=== PATIENT | female | born 1960 | race Caucasian/White ===

== ENCOUNTER 2019-11-22 11:59 | Emergency (ER) | payer BC, OTHER ==
--- OUTSIDE RECORDS SUMMARY | 2019-11-22 12:07 | XMS REPORT | Continuity of Care Document ---
:1960 External Reference #:[id number] Author Name Nani Bejarano M.D. (transmitted by agent of provider Sparkle Ladd) Address [address] [facility] [facility], [place] [address] Care Team Providers Name Role Phone Nani Bejarano MD - Internal Care Team Information Business Administration Instructor Medicine Peyton Burnett MD - Surgery Care Team Information Business Administration Instructor Fredy Partida MD - Endocrinology, Care Team Information Business Administration Instructor Diabetes & Metabolism Ally Hernández M.D. - Hematology & Care Team Information Business Administration Instructor [phone] Oncology Pura Gray MD - Obstetrics & Care Team Information Business Administration Instructor [phone] Gynecology Phylicia Navas NP - Psych/Mental Care Team Information Business Administration Instructor Health, Adult Problems Active Problems Provider Date Malignant tumor of anal canal Nani Bejarano M.D. Onset: 12/30/2014 History of malignant neoplasm of breast Nani Bejarano M.D. Onset: 2014 Hyperlipidemia Nani Bejarano M.D. Onset: 10/20/2015 Social History Type Date Description Comments Sex Unknown Tobacco Use Start: Unknown End: Former Cigarette Smoker age 15-18 Unknown Smoking Status Reviewed: 11/11/19 Former Cigarette Smoker age 15-18 ETOH Use Drinks Alcoholic Beverages Occasionally Tobacco Use Start: Unknown End: Patient is a former Smoked age 16-18 Unknown smoker Recreational Drug Use Denies Drug Use Exercise Type/Frequency Exercises sporadically walk, exercise bike, 2 days per week. Allergies, Adverse Reactions, Alerts Active Allergies Reaction Severity Comments Date Penicillin 11/15/2014 Doxycycline nausea and vomiting 11/15/2014 Sulfa Antibiotics Nausea and Vomiting Moderate 11/23/2016 Atorvastatin increased LFTs 11/26/2017 Azithromycin Fever and sweats 03/20/2019 Medications Active Medications SIG Qnty Indications Ordering Provider Date Omeprazole 1 by mouth every 90caps R10.9 Nani Bejarano, 08/05/[address] Capsules DR Trazodone HCL 2 by mouth every 30tabs Unknown 100mg night at bedtime Tablets Vitamin D 1 tablets by 60tabs Unknown 2000Unit mouth once a day Tablets Benadryl 1 by mouth at at 30caps Unknown 25mg Capsules bedtime Vitamin B-12 every day Unknown Natural 500mcg Tablets Melatonin Extra 2 po QHS Unknown Strength 5mg/15ML Liquid Vitamin C 1 by mouth every Unknown W/Vitamin E day [id number] Capsules Multi Vitamin 1 by mouth every Unknown Tablets day Hyoscyamine Sulfate as Needed Foor-Pessin, Rocky Medel 0.125mg Tablets Sub Escitalopram Oxalate 1 by mouth every Phylicia Navas, day NEMATOLOGY TEACHER 20mg Tablets Medications Administered in Office Medication SIG Qnty Indications Ordering Provider Date Records Fee Alex Mar M.D. 10/07/2019 Injection PPD Unknown 04/01/2012 Injection PPD Unknown 05/12/1998 Injection Immunizations CPT Code Status Date Vaccine Lot # [id number] Given 09/17/2019 Influenza Virus Vaccine, Quadrivalent, Split, Preservative Free Vital Signs Date Vital Result Comment 11/11/2019 3:46pm Height 65.5 inches 5'5.50" Weight 138.00 lb Heart Rate 72 /min BP Systolic 121 mmHg BP Diastolic 68 mmHg O2 % BldC Oximetry 98 % BMI (Body Mass Index) 22.6 kg/m2 08/05/2019 2:02pm Height 65.5 inches 5'5.50" Weight 140.00 lb Heart Rate 73 /min BP Systolic 103 mmHg BP Diastolic 63 mmHg Body Temperature 97.1 F O2 % BldC Oximetry 97 % BMI (Body Mass Index) 22.9 kg/m2 Results Test Acquired Date Facility Test Result H/L Range Note Laboratory test 09/30/2019 [facility] Blood Urea 12 mg/dL Normal 6-[address] [place] [address] [phone] Creatinine 09/30/2019 [facility] Creatinine 0.86 mg/dL Normal 0.51-0.[address] [place] [address] [phone] Egfr Non- 67.3 >60 Egfr 81.4 >60 1 Cytology 08/29/2019 [facility] Cytology SEE RESULT BELOW 2 , [address] [place] [address] [phone] PDFReport [id number] <SEE NOTE> Laboratory test 08/13/2019 [facility] Surgical SEE RESULT [address] [place] [address] [phone] CBC Auto Diff 05/30/2019 [facility] White Blood 3.7 10^3/uL Normal 3.5-[address] Count 0.8 [place] [address] [phone] Red Blood Count 4.08 10^6/uL Normal 3.70-4.87 Hemoglobin 12.0 g/dL Normal 12.0-16.0 Hematocrit 37 % Normal 35-47 Mean Corpuscular Volume 90 fL Normal 80-97 Mean Corpuscular Hemoglobin 29 pg Normal 27-31 Mean Corpuscular HGB Conc 33 g/dL Normal 31-36 Red Cell Distribution Width 14 % Normal 10-15 Platelet Count 202 10^3/uL Normal 150-450 Mean Platelet Volume 7.1 fL Low 7.4-10.4 Abs Neutrophils 2.2 10^3/uL Normal 1.5-7.7 Abs Lymphocytes 1.0 10^3/uL Normal 1.0-4.8 Abs Monocytes 0.4 10^3/uL Normal 0-0.8 Abs Eosinophils 0.0 10^3/uL Normal 0-0.6 Abs Basophils 0.0 10^3/uL Normal 0-0.2 Abs Nucleated RBC 0.0 10^3/uL Granulocyte % 59.7 % Lymphocyte % 26.5 % Monocyte % 12.1 % Eosinophil % 1.2 % Basophil % 0.5 % Nucleated Red Blood Cells % 0.0 Comp Metabolic 05/30/2019 [facility] Sodium 138 mmol/L Normal 135-[address] [place] [address] [phone] Potassium 4.0 mmol/L Normal 3.5-5.0 Chloride 104 mmol/L Normal 101-111 Co2 Carbon Dioxide 28 mmol/L Normal 22-32 Anion Gap 6 mmol/L Normal 2-11 Glucose 86 mg/dL Normal 70-100 Blood Urea Nitrogen 16 mg/dL Normal 6-24 Creatinine 0.80 mg/dL Normal 0.51-0.95 BUN/Creatinine Ratio 20.0 Normal 8-20 Calcium 9.6 mg/dL Normal 8.6-10.3 Total Protein 6.8 g/dL Normal 6.4-8.9 Albumin 4.1 g/dL Normal 3.2-5.2 Globulin 2.7 g/dL Normal 2-4 Albumin/Globulin Ratio 1.5 Normal 1-3 Total Bilirubin 0.40 mg/dL Normal 0.2-1.0 Alkaline Phosphatase 72 U/L Normal 34-104 Alt 24 U/L Normal 7-52 Ast 33 U/L Normal 13-39 Egfr Non- 73.2 >60 Egfr 88.5 >60 5 Laboratory test 05/30/2019 [facility] C Reactive 1.67 mg/L Normal <8.[address] [place] [address] [phone] 1 Because ethnic data is not always readily available, this report includes an eGFR for both -Americans and non- Americans. The National Kidney Disease Education Program (NKDEP) does not endorse the use of the MDRD equation for patients that are not between the ages of 18 and 70, are , have extremes of body size, muscle mass, or nutritional status, or are non- or non-. According to the National Kidney Foundation, irrespective of diagnosis, the stage of the disease is based on the level of kidney function: Stage Description GFR(mL/min/1.73 m(2)) 1 Kidney damage with normal or decreased GFR 90 2 Kidney damage with mild decrease in GFR 60-89 3 Moderate decrease in GFR 30-59 4 Severe decrease in GFR 15-29 5 Kidney failure <15 (or dialysis) 2 [id number] 3 SEE RESULT BELOW Name: KIKA SANDERS : [address]: Pura Gray MD Acct: [id number] Unit: [id number] AGE: 59 Location: [facility] Re08/29/19 SEX: F Status: REG REF SPEC: [id number] JIMMY: 08/29/[address] [facility] [address]: Pura Gray MD REQ: [id number] RECD: 08/29/19 STATUS: LITA TOBAR DR: Nani Bejarano MD _ ORDERED: TP IMAGE ANALYS, SEAL SKINNER PHYS INTERP, HPV/Thin Prep COMMENTS: [id number] FINAL DIAGNOSIS EPITHELIAL CELL ABNORMALITIES Atypical squamous cells, cannot exclude HSIL (ASC-H) HPV RESULTS Date Time Test Result Flag (u) Normal Range 08/29/19 0848 HPV LATRICE POSITIVE An Negative The high-risk HPV types detected by the assay include: 16, 18, 31, 33, 35, 39, 45, 51, 52, 56, 58, 59, 66, and 68. SPECIMEN(S) RECEIVED A. Ectocervical/Endocervical CYTOLOGY ADEQUACY Specimen Adequacy: Satisfactory of evaluation Transformation zone component cannot be definitely identified due to presence of atrophy or other hormonal changes CONTINUED ON NEXT PAGE DEPARTMENT OF PATHOLOGY, [address] [place], [place] [id number] Yinka Hadley M.D. Director [facility] # [id number] CYTOLOGY PATIENT INFORMATION Patient Information: HPV: High risk HPV RNA testing regardless of pap results. Actual Specimen Date: 08/29/19 LMP If Unknown: 07/2008 Date of Last Specimen: 01/15/19 Post Menopausal?: Y Previous Abnormal Pap Smears?:Y If Yes, enter Diagnosis: Low grade squamous intraepithelial lesion. Signed by and Reported on: Yinka Hadley MD 1170 This Pap test was evaluated with the assistance of the FAB BAG Test Imaging System. Due to cytologic findings at the case repairer microscope, comprehensive manual rescreening by a Lead Software Qa Engineer may be required. The Pap Smear is a screening test designed to aid in the detection of premalignant and malignant conditions of the uterine cervix. It is not a diagnostic procedure and should not be used as the sole means of detecting cervical cancer. Both false- positive and false- negative reports do occur. Depending on your risk status, a Pap smear should be obtained and evaluated every 1-3 years. END OF REPORT DEPARTMENT OF PATHOLOGY, [facility] [address] [place], [place] [address] Yinka Hadley M.D. Director [facility] # [id number] 4 SEE RESULT BELOW Name: KIKA SANDERS : [address]: Lizy Reagan MD Acct: [id number] Unit: [id number] AGE: 59 Location: ENDO Re08/13/19 SEX: F Status: DEP REF SPEC: [id number] JIMMY: 08/13/[address]: Lizy Carias MD REQ: [id number] RECD: 08/13/19 STATUS: LITA TOBAR DR: Nani Bejarano MD _ ORDERED: LEVEL 4/7 FINAL DIAGNOSIS 1. Terminal ileum, biopsy: -- Benign small intestinal mucosa with no significant pathologic abnormalities. 2. Colon, right, biopsy: -- Benign colonic mucosa with no significant pathologic abnormalities. -- No evidence of microscopic colitis. 3. Colon, hepatic flexure, biopsy: -- Hyperplastic polyp. 4. Colon, transverse, biopsy: -- Benign colonic mucosa with no significant pathologic abnormalities. -- No evidence of microscopic colitis. 5. Colon, descending, biopsy: -- Benign colonic mucosa with no significant pathologic abnormalities. -- No evidence of microscopic colitis. 6. Colon, sigmoid, biopsy: -- Benign colonic mucosa with no significant pathologic abnormalities. -- No evidence of microscopic colitis. 7. Colon, rectum, biopsy: -- Benign colonic mucosa with no significant pathologic abnormalities. -- No evidence of microscopic colitis. CLINICAL HISTORY Diarrhea CONTINUED ON NEXT PAGE DEPARTMENT OF PATHOLOGY, [address] [place] [address] Yinka Hadley M.D. Director [facility] # [id number] POST-OPERATIVE DIAGNOSIS Colonoscopy: to terminal ileum; hepatic flexure 3 mm jumbo; 0-10 cm mildly erythematous; hypertrophic adenoma polyp; decreased rectal tone GROSS DESCRIPTION 1. The specimen is received in formalin labeled, Biopsy Terminal Ileum, and consists of three santos-pink irregular to polypoid soft tissue fragments ranging from 0.4 x 0.3 x 0.3 cm to 0.7 x 0.5 x 0.2 cm, which are entirely submitted in one cassette. 2. The specimen is received in formalin labeled, Biopsy Right Colon, and consists of a 1.0 x 1.0 x 0.2 cm aggregate of speckled santos-red irregular to polypoid soft tissue fragments, which is entirely submitted in one cassette. 3. The specimen is received in formalin labeled, Biopsy Hepatic Flexure Polyp, and consists of a 0.5 x 0.3 x 0.3 cm parra pink irregular to polypoid soft tissue fragment, which is entirely submitted in one cassette. 4. The specimen is received in formalin labeled, Biopsy Transverse Colon, and consists of two speckled santos-pink irregular to polypoid soft tissue fragments measuring 0.6 x 0.5 x 0.2 cm and 1.2 x 0.2 x 0.2 cm, which are entirely submitted in one cassette. 5. The specimen is received in formalin labeled, Biopsy Descending Colon, and consists of two santos-pink irregular to polypoid soft tissue fragments measuring 0.6 x 0.2 x 0.1 cm and 0.7 x 0.3 x 0.1 cm, which are entirely submitted in one cassette. 6. The specimen is received in formalin labeled, Biopsy Sigmoid Colon, and consists of a 0.9 x 0.7 x 0.2 cm aggregate of speckled santos-red irregular to polypoid soft tissue fragments, which are entirely submitted in one cassette. 7. The specimen is received in formalin labeled, Biopsy Rectum, and consists of a 1.0 x 0.6 x 0.3 cm aggregate of speckled santos-red irregular to polypoid soft tissue fragments, which is entirely submitted in one cassette. Signed by and Reported on: Tatiana Alanis MD 08/14/19 1346 END OF REPORT DEPARTMENT OF PATHOLOGY, [address] [place] [address] Yinka Hadley M.D. Director [facility] # [id number] 5 Because ethnic data is not always readily available, this report includes an eGFR for both -Americans and non- Americans. The National Kidney Disease Education Program (NKDEP) does not endorse the use of the MDRD equation for patients that are not between the ages of 18 and 70, are , have extremes of body size, muscle mass, or nutritional status, or are non- or non-. According to the National Kidney Foundation, irrespective of diagnosis, the stage of the disease is based on the level of kidney function: Stage Description GFR(mL/min/1.73 m(2)) 1 Kidney damage with normal or decreased GFR 90 2 Kidney damage with mild decrease in GFR 60-89 3 Moderate decrease in GFR 30-59 4 Severe decrease in GFR 15-29 5 Kidney failure <15 (or dialysis) Procedures Date Code Description Status 08/13/2019 [id number] Colonoscopy Completed 06/18/2019 [id number] Mammogram Completed 06/17/2018 [id number] Bone Mineral Density Test Completed 07/02/2017 [id number] Mammogram Completed 06/29/2016 [id number] Mammogram Completed 06/28/2015 [id number] Mammogram Completed 07/02/2014 [id number] Mammogram Completed 01/01/2014 [id number] Mammogram Completed 07/23/2012 [id number] Colonoscopy Completed 01/30/2007 [id number] Colonoscopy Completed Medical Devices Description No Information Available Encounters Type Date Location Provider Dx Diagnosis Office Visit 08/05/2019 [facility] Internal Nani Bejarano, F43.20 Adjustment 2:00p Medicine - Ccmob M.D. disorder, unspecified R10.30 Lower abdominal pain, unspecified R15.9 Full incontinence of feces Office Visit 07/08/2019 9:00a [facility] Internal Nani R10.30 Lower abdominal Medicine - Cotton, M.D. pain, unspecified Ccmob M54.9 Dorsalgia, unspecified F33.9 Major depressive disorder, recurrent, unspecified Office Visit 06/10/2019 10:00a [facility] Internal Nani R10.30 Lower abdominal Medicine - Cotton, M.D. pain, unspecified Ccmob F33.9 Major depressive disorder, recurrent, unspecified Office Visit 05/30/2019 12:40p [facility] Internal Nani R10.30 Lower abdominal Medicine - Cotton, M.D. pain, unspecified Ccmob R53.83 Other fatigue Assessments Date Code Description Provider 11/11/2019 N87.9 Dysplasia of cervix uteri, unspecified Nani Cotton, M.D. 11/11/2019 R15.9 Full incontinence of feces Nani Cotton, M.D. 11/11/2019 R10.30 Lower abdominal pain, unspecified Nani Cotton, M.D. 08/05/2019 F43.20 Adjustment disorder, unspecified Nani Cotton, M.D. 08/05/2019 R10.30 Lower abdominal pain, unspecified Nani Cotton, M.D. 08/05/2019 R15.9 Full incontinence of feces Nani Cotton, M.D. 07/08/2019 R10.30 Lower abdominal pain, unspecified Nani Cotton, M.D. 07/08/2019 M54.9 Dorsalgia, unspecified Nani Cotton, M.D. 07/08/2019 F33.9 Major depressive disorder, recurrent, Nani Cotton, M.D. unspecified 06/10/2019 R10.30 Lower abdominal pain, unspecified Nani Cotton, M.D. 06/10/2019 F33.9 Major depressive disorder, recurrent, Nani Cotton, M.D. unspecified 05/30/2019 R10.30 Lower abdominal pain, unspecified Nani Cotton, M.D. 05/30/2019 R53.83 Other fatigue Nani Bejarano M.D. Plan of Treatment Future Appointment(s):12/30/2019 10:40 am - Nani Bejarano M.D. at [facility] - Nani Bejarano M.D. at [facility] - Nani Bejarano M.D.N87.9 Dysplasia of cervix uteri, unspecifiedComments:Plan is for surgeryFollow up:mid DnhdxyozM95.9 Full incontinence of otgtxL79.30 Lower abdominal pain, unspecified Functional Status Description No Information Available Mental Status Description No Information Available Referrals Refer to Reason for Referral Status Appt Date Felice-Lizy Carias M.D. Closed 07/15/2019 [address] [place] [address] [phone]
[2019-11-22 12:47] LABS: ABS Eosinophils 0.1 10^3/ul (0-0.6); ABS Lymphocytes 0.9 10^3/ul (1.0-4.8); ABS Monocytes 0.4 10^3/ul (0-0.8); Eosinophil % 1.5 %; Hematocrit 35 % (35-47); Hemoglobin 11.7 g/dL (12.0-16.0); Lymphocyte % 16.9 %; Mean Corpuscular HGB Conc 34 g/dL (31-36); Mean Corpuscular Hemoglobin 30 pg (27-31); Mean Corpuscular Volume 90 fL (80-97); Mean Platelet Volume 6.5 fL (7.4-10.4); Platelet Count 263 10^3/uL (150-450); Red Blood Count 3.86 10^6 /uL (3.70-4.87); Red Cell Distribution Width 14 % (10-15); White Blood Count 5.4 10^3/uL (3.5-10.8)
--- NOTE | 2019-11-22 12:51 | ED ---
HPI Chest Pain - HPI Summary HPI Summary: Pt is a 59 y/o F presenting to the ED with a chief complaint of chest pain initially onset around 0345 this date. She states she recently had a hysterectomy with biopsies where they found endometrial cancer. She was recovering well until yesterday when she was incredibly fatigued. She woke around 0345 with L shoulder, L side, and L rib pain, and she thought it may have gone away over time but it did not alleviate. It is much worse with deep breaths, and she describes it as a squeezing pain that radiates to her back. Denies hx of heart problems, asthma, COPD, or blood clots. Hx of aggressive HPV , anal and breast CA. - History of Current Complaint Chief Complaint: EDChestWallPain Time Seen by Provider: 11/22/19 12:04 Hx Obtained From: Patient Onset/Duration: Started Hours Ago, Still Present Timing: Constant, Lasting Hours Initial Severity: Severe Current Severity: Moderate Pain Intensity: 7 Pain Scale Used: 0-10 Numeric Chest Pain Location: Mid Sternal Chest Pain Radiates: Yes Chest Pain Radiates To:: Back Character: Pressure/Squeezing Aggravating Factor(s): Deep Breaths Alleviating Factor(s): Nothing Associated Signs and Symptoms: Positive: Chest Pain - Allergy/Home Medications Allergies/Adverse Reactions: Allergies Allergy/AdvReac Type Severity Reaction Status Date / Time Penicillins Allergy Intermediate Hives Verified 11/22/19 12:08 Sulfa (Sulfonamide Allergy Mild GI Upset Verified 11/22/19 12:08 Antibiotics) atorvastatin Allergy elevated Verified 11/22/19 12:08 LFT azithromycin Allergy patient Verified 11/22/19 12:08 doesn't recall doxycycline Allergy flu-like Verified 11/22/19 12:08 symptoms PMH/Surg Hx/FS Hx/Imm Hx Previously Healthy: Yes Endocrine/Hematology History: Denies: Hx Diabetes Cardiovascular History: Reports: Hx Hypercholesterolemia Denies: Hx Congestive Heart Failure, Hx Hypertension, Hx Pacemaker/ICD History: Denies: Hx Renal Disease Musculoskeletal History: Reports: Other Musculoskeletal History - HX BREAST CA RIGHT WITH MASTECTOMY Sensory History: Denies: Hx Hearing Aid Psychiatric History: Denies: Hx Panic Disorder - Cancer History Cancer Type, Location and Year: BREAST AND RECTUM Hx Chemotherapy: Yes - BREAST Hx Radiation Therapy: Yes - BREAST - Surgical History Surgery Procedure, Year, and Place: 1979, TONSILS, NOSE RECONSTRUCTION , LUMPECTOMY, MASTECTOMY AND BREAST RECONSTRUCTION, MALIGNANT TUMOR REMOVAL FROM BOWEL Infectious Disease History: No Infectious Disease History: Denies: Traveled Outside the [place] in Last 30 Days - Family History Known Family History: Negative: Respiratory Disease - Social History Alcohol Use: None Hx Substance Use: No Substance Use Type: Reports: None Hx Tobacco Use: Yes Smoking Status (MU): Former Smoker Review of Systems Positive: Fatigue Positive: Chest Pain All Other Systems Reviewed And Are Negative: Yes Physical Exam - Summary Physical Exam Summary: Constitutional: Well-developed, Well-nourished, Alert. (-) Distressed Skin: Warm, Dry HENT: Normocephalic; Atraumatic Eyes: Conjunctiva normal Neck: Musculoskeletal ROM normal neck. (-) JVD, (-) Stridor, (-) Tracheal deviation Cardio: Rhythm regular, rate normal, Heart sounds normal; Intact distal pulses; The pedal pulses are 2+ and symmetric. Radial pulses are 2+ and symmetric. (-) Murmur Pulmonary/Chest wall: Effort normal. (-) Respiratory distress, (-) Wheezes, (-) Rales Abd: Laparoscopic surgical sites appear well, no erythema or dehiscence. Soft, ( -) tenderness, (-) Distension, (-) Guarding, (-) Rebound Musculoskeletal: (-) Edema Lymph: (-) Cervical adenopathy Neuro: Alert, Oriented x3 Psych: Mood and affect Normal Triage Information Reviewed: Yes Vital Signs On Initial Exam: Initial Vitals Temp Pulse Resp BP Pulse Ox 97.3 F 74 16 118/62 100 11/22/19 12:05 11/22/19 12:05 11/22/19 12:05 11/22/19 12:05 11/22/19 12:05 Vital Signs Reviewed: Yes Procedures - Sedation Patient Received Moderate/Deep Sedation with Procedure: No Diagnostics - Vital Signs Vital Signs Temp Pulse Resp BP Pulse Ox 11/22/19 12:05 97.3 F 74 16 118/62 100 - Laboratory Result Diagrams: 11/22/19 12:33 11/22/19 12:33 Lab Statement: Any lab studies that have been ordered have been reviewed, and results considered in the medical decision making process. - Radiology CXR Radiology Interpretation Completed By: Radiologist Summary of Radiographic Findings: 1. Postsurgical change of RIGHT mastectomy and bilateral breast implants. 2. Bilateral subcutaneous emphysema and free air beneath the hemidiaphragms corresponding with history of hysterectomy last week. 3. Clear lungs and pleural spaces. Negative for pneumothorax. 4. The heart, pulmonary vasculature, and mediastinal contours are unremarkable. 5. Gallbladder fossa level surgical clips. No rib fracture evident. ED physician has reviewed this report. - EKG 1203 Cardiac Rate: NL - 75bpm EKG Rhythm: Sinus Rhythm ST Segment: Normal Ectopy: None Summary of EKG Findings: EKG at 1203 shows NSR at 75bpm with no STEMI. Dr. Brambila has reviewed and interpreted this EKG. Chest Pain Course/Dx - Course Course Of Treatment: Pt is a 59 y/o F presenting to the ED with a chief complaint of chest pain initially onset around 0345 this date that has not gone away and is described as squeezing. It is worse with deep breaths. She notes fatigue yesterday that has not been usual since her hysterectomy w/ endometrial biopsies. On exam, laparoscopic surgical sites appear well, no erythema or dehiscence. EKG at 1203 shows NSR at 75bpm with no STEMI. Dr. Brambila has reviewed and interpreted this EKG. CXR shows: 1. Postsurgical change of RIGHT mastectomy and bilateral breast implants. 2. Bilateral subcutaneous emphysema and free air beneath the hemidiaphragms corresponding with history of hysterectomy last week. 3. Clear lungs and pleural spaces. Negative for pneumothorax. 4. The heart, pulmonary vasculature, and mediastinal contours are unremarkable. 5. Gallbladder fossa level surgical clips. No rib fracture evident. As of 1519, pt is improved, stable, and agreeable to discharge. Instructed to f/u with PCP on 11/24/2019. Dx includes chest pain and post -operative pain. - Diagnoses Provider Diagnoses: Chest pain, Post-operative pain Discharge ED - Sign-Out/Discharge Documenting (check all that apply): Patient Departure - Discharge Plan Condition: Stable Disposition: HOME Patient Education Materials: Chest Pain (ED) Referrals: Nani Bejarano MD [Primary Care Provider] - Additional Instructions: Please follow up with your primary care provider on 11/24/2019. Return to the emergency department with any new or worsening symptoms. - Attestation Statements Document Initiated by Scribe: Yes Documenting Scribe: Bety Villagran Provider For Whom Scribe is Documenting (Include Credential): DO. Gina Perezibjin Attestation: I, Bety Villagran, scribed for Janes Brambila DO. on 11/22/19 at 1522. Status of Scribe Document: Ready
[2019-11-22 13:02] LABS: Albumin 3.7 g/dL (3.2-5.2); Albumin/Globulin Ratio 1.2 (1-3); BUN/Creatinine Ratio 19.2 (8-20); Calcium 9.4 mg/dL (8.6-10.3); EGFR African American 98.4 (>60); EGFR Non-African American 81.3 (>60); Globulin 3.2 g/dL (2-4); Potassium 3.6 mmol/L (3.5-5.0); Total Bilirubin 0.5 mg/dL (0.2-1.0); Total Protein 6.9 g/dL (6.4-8.9)
[2019-11-22 13:43] LABS: Magnesium 2.1 mg/dL (1.9-2.7)
[2019-11-22 15:36] VITALS: BP 128/74
== END 2019-11-22 15:35 | disposition home or self-care (01) ==
LOC: ED 11:59
DX: R07.9 Chest pain, unspecified (principal); G89.18 Other acute postprocedural pain; Z90.710 Acquired absence of both cervix and uterus; C54.1 Malignant neoplasm of endometrium; E78.00 Pure hypercholesterolemia, unspecified; Z85.3 Personal history of malignant neoplasm of breast; Z85.048 Personal history of other malignant neoplasm of rectum, rectosigmoid junction, and anus; Z90.11 Acquired absence of right breast and nipple; Z87.891 Personal history of nicotine dependence; Z88.0 Allergy status to penicillin; Z88.1 Allergy status to other antibiotic agents; Z88.2 Allergy status to sulfonamides; Z88.8 Allergy status to other drugs, medicaments and biological substances
CPT/HCPCS: 36415; 71045; 80053; 83735; 84484; 85025; 93005; 99283